=== PATIENT | female | born 1960 | race Caucasian/White ===

== ENCOUNTER 2017-09-15 09:28 | Outpatient (CLI) | payer BC ==
--- NOTE | 2017-09-15 10:18 | CT ---
CT OF THE CHEST WITHOUT CONTRAST: Date: 09/15/17 COMPARISON: 03/09/17. HISTORY: Pulmonary nodules. TECHNIQUE: Multiple contiguous axial images were obtained in a CT of the chest without contrast. Sagittal and c oronal reformats were performed. FINDINGS: There are stable areas of pleural nodularity scattered throughout both thoraces. The areas of nodula rity projecting over the right lower lobe are actually pleural based nodules overlying the right hem idiaphragm. Some of these nodules demonstrate calcification are likely secondary to prior asbestos e xposure. The largest nodule seen in the left upper lobe measures approximately 2.0 cm in size. No ne w nodules are seen. No significant enlargement of any of the nodules is seen. No pleural effusion or pneumothorax present. No intraparenchymal nodules are seen. The heart is normal in size. No hilar or mediastinal lymphadenopathy seen. The visualized subdiaphragmatic structures are unremarkable. Mild degenerative changes are seen in t he spine. IMPRESSION: Bilateral pleural based nodules/pleural plaques. These are most likely secondary to prior asbestos e xposure. POS: LEN
== END 2017-09-15 09:29 | disposition home or self-care (01) ==
LOC: CT 09:28
PROVIDERS: ATTEND Internal Medicine Critical Care Medicine
DX: R91.1 Solitary pulmonary nodule (principal); R91.8 Other nonspecific abnormal finding of lung field
CPT/HCPCS: 71250

== ENCOUNTER 2019-01-23 12:28 | Outpatient (CLI) | payer BC ==
--- NOTE | 2019-01-23 14:05 | CT ---
CT CHEST WITHOUT CONTRAST: HISTORY: Followup of pulmonary nodules. COMPARISON: 09/15/2017 FINDINGS: The lung are clear of any confluent infiltrative process. Calcified pleural-based plaques are again noted. These changes appear stable, as compared to the prior examination. There are no new findings demonstrated. No significant mediastinal, hilar, or axillary adenopathy is appreciated. The visualized liver parenchyma shows no focal findings. The right and left adrenal glands are desmond l. IMPRESSION: Stable appearance to the partially calcified pleural-based plaque, suggesting prior asbestosis exposu re. No change since the 2017 study. POS: T[facility]
== END 2019-01-23 12:29 | disposition home or self-care (01) ==
LOC: CT 12:28
PROVIDERS: ATTEND Internal Medicine Critical Care Medicine
DX: R91.1 Solitary pulmonary nodule (principal); J98.4 Other disorders of lung
CPT/HCPCS: 71250

== ENCOUNTER 2020-04-22 12:55 | Outpatient (CLI) | payer BC ==
--- NOTE | 2020-04-22 14:37 | CT ---
CT CHEST WITHOUT CONTRAST CLINICAL INDICATION: Follow-up pulmonary nodules COMPARISON: 01/23/2019 and 09/15/2017 FINDINGS: Aorta: Limited evaluation of vascular structures due to lack of intravenous contrast. Thoracic aorta is normal in caliber. Lungs: Again noted are scattered pleural-based nodular densities majority of which also demonstrate a ssociated calcification. There has been interval development of subtle reticular opacities and groundglass opacities with peripheral predominance seen diffusely and overall symmetrically within th e lungs bilaterally. This is an overall nonspecific finding. Stable 4 mm pulmonary nodule seen at the lateral aspect left lung base. No pleural effusion is seen. No appreciable bronchiectasis is note d. Mediastinum: Limited due to lack of intravenous contrast, but no enlarged lymph nodes are seen. Thyroid gland: Grossly within normal limits for nonenhanced CT appearance. Osseous structures: No suspicious lytic or sclerotic osseous lesions are identified. Scattered mild d egenerative changes are seen in the thoracic spine. Chest wall: No abnormality visualized. Upper abdomen: Visualized upper abdominal structures demonstrate grossly normal nonenhanced CT appear ance. IMPRESSION: 1. Interval development of nonspecific peripherally located reticular and groundglass densities. This finding can be seen with nonspecific interstitial pneumonia. Usual interstitial pneumonitis is also a possibility. Hypersensitivity lung disease is a possibility. 2. Stable pleural-based nodules majority of which demonstrate associated calcification. 3. Stable 4 mm left lower lobe pulmonary nodule.
== END 2020-04-22 12:56 | disposition home or self-care (01) ==
LOC: BICCT 12:55
PROVIDERS: ATTEND Internal Medicine Critical Care Medicine
DX: R91.8 Other nonspecific abnormal finding of lung field (principal)
CPT/HCPCS: 71250

== ENCOUNTER 2020-05-08 10:11 | Outpatient (CLI) | payer BC ==
--- NOTE | 2020-05-12 09:22 | MMO ---
Bilateral MAMMO Bilat Screen [facility]. CLINICAL HISTORY: Patient is 60 years old and is seen for screening. The patient has no family history of breast cancer. The patient has no personal history of cancer. VIEWS: The views performed were: bilateral craniocaudal with tomosynthesis and bilateral mediolateral oblique with tomosynthesis. FILMS COMPARED: The present examination has been compared to prior imaging studies performed at This study has been interpreted with the assistance of computer-aided detection. MAMMOGRAM FINDINGS: There are scattered fibroglandular densities. There are no suspicious masses, suspicious calcifications, or new areas of architectural distortion. IMPRESSION: THERE IS NO MAMMOGRAPHIC EVIDENCE OF MALIGNANCY. A ROUTINE FOLLOW-UP MAMMOGRAM IN 1 YEAR IS RECOMMENDED. THE RESULTS OF THIS EXAM WERE SENT TO THE PATIENT. ACR BI-RADS Category 1 - Negative MAMMOGRAPHY NOTE: 1. A negative mammogram report should not delay a biopsy if a dominant of clinically suspicious mass is present. 2. Approximately 10% to 15% of breast cancers are not detected by mammography. 3. Adenosis and dense breasts may obscure an underlying neoplasm. Reported by: HAZEL HERNANDES MD Electonically Signed: [id number]
== END 2020-05-08 10:12 | disposition home or self-care (01) ==
LOC: BICMAMMO 10:11
PROVIDERS: ATTEND Family Medicine
DX: Z12.31 Encounter for screening mammogram for malignant neoplasm of breast (principal)
CPT/HCPCS: 77063; 77067

== ENCOUNTER 2021-04-06 10:17 | Outpatient (CLI) | payer BC | END 2021-04-06 10:18 | disposition home or self-care (01) | LOC: BICCT 10:17 | PROVIDERS: ATTEND Internal Medicine Critical Care Medicine | DX: R91.1 Solitary pulmonary nodule (principal); J61 Pneumoconiosis due to asbestos and other mineral fibers; J47.9 Bronchiectasis, uncomplicated; J84.10 Pulmonary fibrosis, unspecified; R91.8 Other nonspecific abnormal finding of lung field; I25.10 Atherosclerotic heart disease of native coronary artery without angina pectoris; I70.0 Atherosclerosis of aorta; K44.9 Diaphragmatic hernia without obstruction or gangrene | CPT/HCPCS: 71250 ==

== ENCOUNTER 2022-04-22 07:29 | Outpatient (CLI) | payer BC | END 2022-04-22 07:30 | disposition home or self-care (01) | LOC: CT 07:29 | PROVIDERS: ATTEND Internal Medicine Critical Care Medicine | DX: R91.8 Other nonspecific abnormal finding of lung field (principal); J98.4 Other disorders of lung | CPT/HCPCS: 71250 ==

== ENCOUNTER 2023-10-27 15:23 | Outpatient (CLI) | payer BC | END 2023-10-27 15:24 | disposition home or self-care (01) | LOC: CT 15:23 | PROVIDERS: ATTEND Internal Medicine Critical Care Medicine | DX: J18.9 Pneumonia, unspecified organism (principal); J94.8 Other specified pleural conditions | CPT/HCPCS: 71250 ==

== ENCOUNTER 2024-09-19 08:35 | Outpatient (CLI) | payer BC | END 2024-09-19 08:36 | disposition home or self-care (01) | LOC: BICMAMMO 08:35 | PROVIDERS: ATTEND Student in an Organized Health Care Education/Training Program | DX: Z12.31 Encounter for screening mammogram for malignant neoplasm of breast (principal) | CPT/HCPCS: 77063; 77067 ==

== ENCOUNTER 2024-10-16 08:04 | Outpatient (CLI) | payer BC | END 2024-10-16 08:05 | disposition home or self-care (01) | LOC: BICCT 08:04 | PROVIDERS: ATTEND Internal Medicine Critical Care Medicine | DX: R91.8 Other nonspecific abnormal finding of lung field (principal) | CPT/HCPCS: 71250 ==

== ENCOUNTER 2025-11-05 09:22 | Outpatient (CLI) | payer MEDICARE | END 2025-11-05 09:23 | disposition home or self-care (01) | LOC: BICMAMMO 09:22 | PROVIDERS: ATTEND Student in an Organized Health Care Education/Training Program | DX: Z12.31 Encounter for screening mammogram for malignant neoplasm of breast (principal); M85.89 Other specified disorders of bone density and structure, multiple sites; Z78.0 Asymptomatic menopausal state; Z80.3 Family history of malignant neoplasm of breast | CPT/HCPCS: 77063; 77067; 77080 ==